=== PATIENT | female | born 1970 | race Caucasian/White ===

== ENCOUNTER → 2016-09-24 | Outpatient (CLI) | payer BC | LOC: RAD 04:47 | DX: Z12.31 Encounter for screening mammogram for malignant neoplasm of breast (principal) ==

== ENCOUNTER → 2017-09-29 | Outpatient (CLI) | payer BC | LOC: RAD 01:11 | DX: Z12.31 Encounter for screening mammogram for malignant neoplasm of breast (principal) ==